=== PATIENT | male | born 1955 | race Hispanic/Latino ===

== ENCOUNTER 2024-04-19 19:23 | Emergency (ER) | payer OTHER ==
[~2024-04-19] VITALS: Ht 172.7 cm; Wt 93.0 kg
[~2024-04-19 19:23] MED LIST: ASPI-1197 PO; ATOR40TA69 PO
[2024-04-19 19:31] LABS: GLUCOSE POC COMMENT Notified Nurse
[2024-04-19 19:49] LABS: APPEARANCE,URINE CLEAR (CLEAR); BILIRUBIN,URINE NEGATIVE (NEGATIVE); COLOR,URINE COLORLESS (YELLOW); GLUCOSE, URINE (UA) NEGATIVE (NEGATIVE); KETONES,URINE NEGATIVE (NEGATIVE); LEUKOCYTE ESTERASE ,URINE NEGATIVE Leu/uL (NEGATIVE); NITRATE,URINE NEGATIVE (NEGATIVE); OCCULT BLOOD,URINE NEGATIVE (NEGATIVE); PROTEIN,URINE NEGATIVE (NEGATIVE); UROBILINOGEN,URINE 0.2 mg/dL (0.2-1.0)
[2024-04-19 19:57] LABS: ADD UA MICROSCOPIC NO
[2024-04-19 20:01] VITALS: TEMP 97.5
[2024-04-19 20:04] LABS: BASOPHILS # (AUTO) 0.04 K/uL (0.00-0.20); BASOPHILS % (AUTO) 0.4 % (0.0-5.0); EOSINOPHILS # (AUTO) 0.25 K/uL (0.00-0.70); EOSINOPHILS % (AUTO) 2.4 % (0.0-8.0); HEMATOCRIT 41.5 % (42-54); IMMATURE GRANULOCYTE ABSOLUTE 0.03 K/uL (0-1); LYMPHOCYTES # (AUTO) 3.3 K/uL (1.0-4.8); LYMPHOCYTES % (AUTO) 31.2 % (21.0-51.0); MEAN CORPUSCULAR HEMOGLOBIN 30.9 pg (27.0-33.0); MEAN CORPUSCULAR HGB CONC 33.7 g/dL (32.0-36.0); MEAN CORPUSCULAR VOLUME 91.6 fL (79-99); MONOCYTES # (AUTO) 0.6 K/uL (0.1-1.0); MONOCYTES % (AUTO) 5.5 % (3.0-13.0); NEUTROPHILS # (AUTO) 6.4 K/uL (1.8-7.7); NEUTROPHILS % (AUTO) 60.2 % (40.0-77.0); PLATELET COUNT (AUTO) 191 K/uL (130-400); RED BLOOD CELL COUNT(AUTO) 4.53 MIL/uL (4.50-6.20); RED CELL DISTRIBUTION WIDTH 12.9 % (11.0-15.5); WHITE BLOOD COUNT (AUTO) 10.6 K/uL (4.8-10.8)
[2024-04-19 20:30] LABS: CREATININE 0.9 mg/dL (0.5-1.3)
[2024-04-19 21:21] VITALS: BP 153/94; PULSE 68; RESP 19; O2SAT 99
== END 2024-04-19 21:22 | disposition home or self-care (01) ==
LOC: EDH 19:23
DX: E11.649 Type 2 diabetes mellitus with hypoglycemia without coma (principal); E78.00 Pure hypercholesterolemia, unspecified; I10 Essential (primary) hypertension; Z79.82 Long term (current) use of aspirin; Z79.899 Other long term (current) drug therapy; Z86.73 Personal history of transient ischemic attack (TIA), and cerebral infarction without residual deficits
CPT/HCPCS: 36415; 80048; 81003; 82948; 85025; 93005

== ENCOUNTER 2024-11-26 12:13 | Observation (INO) | payer OTHER ==
[~2024-11-26] VITALS: Ht 172.7 cm; Wt 94.6 kg
--- NOTE | 2024-11-26 14:06 | HMCIMG ---
Exam Type: CT HEAD/BRAIN W/O CONTRAST Clinical Information: Fall, head injury Comparison: None CT Dose Index (CTDI): 57.33 mGy Dose Length Product (DLP): 956.79 total mGy-cm Findings: The examination shows atrophy. There is low attenuation throughout the periventricular white matter locations, consistent with chronic small vessel ischemic changes. In addition, there is is evidence of an old infarct manifesting as encephalomalacia of the right cerebellar hemisphere. No acute intra- or extra-axial fluid collections are seen. There is no evidence of acute or chronic hemorrhage. There is no mass effect or shift of midline structures. The skull windows show no significant acute abnormalities. Postcraniotomy changes left parietal bone seen. IMPRESSION: 1. ATROPHY AND CHRONIC ISCHEMIC CHANGES. This study was performed using dose reduction techniques to include automated exposure control and/or adjustment of the mA and/or kV according to patient size.
[2024-11-26] MEDS: morPHINE 4 MG SYG IM ONE (14:11)
--- NOTE | 2024-11-26 15:15 | HMCIMG ---
Exam Type: HIP UNILAT 2-3VW RIGHT Clinical Information: pain Comparison: None Findings: The bone examination is unremarkable. No fractures or dislocations are seen. No radiopaque foreign bodies are noted. Soft tissues are preserved. IMPRESSION: Normal examination.
--- NOTE | 2024-11-26 15:15 | HMCIMG ---
Exam Type: RIBS BILAT INC PA CHEST 4+VWS Clinical Information: pain Comparison: None Findings: Routine views reveal no evidence of fracture, dislocation, destructive process, or other rib abnormalities. No soft tissue abnormality is noted either. There is no evidence of pneumothorax. IMPRESSION: NORMAL RIB SERIES.
--- NOTE | 2024-11-26 15:16 | HMCIMG ---
Exam Type: FOREARM 2VWS RT Clinical Information: pain Comparison: None Findings: The bone examination is unremarkable. No fractures or dislocations are seen. No radiopaque foreign bodies are noted. Soft tissues are preserved. IMPRESSION: Normal examination.
--- NOTE | 2024-11-26 15:16 | HMCIMG ---
Exam Type: SHOULDER COMP 2+VWS RT Clinical Information: pain Comparison: None FINDINGS: The acromioclavicular joint shows hypertrophy, which may impinge upon the rotator cuff tendon. The glenohumeral joint is preserved. Visualized portions of the humerus, the scapula, and the clavicle as well as the upper ribcage are unremarkable. No pulmonary pathology is noted in the visualized portions of the upper lobe. The soft tissues are preserved. There are no other gross abnormalities. IMPRESSION: Degenerative changes of the acromioclavicular joint with hypertrophy.
[2024-11-26 16:22] LABS: BASOPHILS # (AUTO) 0.05 K/uL (0.00-0.20); BASOPHILS % (AUTO) 0.5 % (0.0-5.0); EOSINOPHILS # (AUTO) 0.22 K/uL (0.00-0.70); EOSINOPHILS % (AUTO) 2.1 % (0.0-8.0); HEMATOCRIT 43.9 % (42-54); IMMATURE GRANULOCYTE ABSOLUTE 0.04 K/uL (0-1); LYMPHOCYTES # (AUTO) 2.9 K/uL (1.0-4.8); LYMPHOCYTES % (AUTO) 28.7 % (21.0-51.0); MEAN CORPUSCULAR HEMOGLOBIN 29.8 pg (27.0-33.0); MEAN CORPUSCULAR HGB CONC 33.3 g/dL (32.0-36.0); MEAN CORPUSCULAR VOLUME 89.6 fL (79-99); MONOCYTES # (AUTO) 0.6 K/uL (0.1-1.0); MONOCYTES % (AUTO) 6.3 % (3.0-13.0); NEUTROPHILS # (AUTO) 6.4 K/uL (1.8-7.7); PLATELET COUNT (AUTO) 228 K/uL (130-400); RED CELL DISTRIBUTION WIDTH 13.3 % (11.0-15.5); WHITE BLOOD COUNT (AUTO) 10.2 K/uL (4.8-10.8)
[2024-11-26 16:30] LABS: CREATININE 0.8 mg/dL (0.5-1.3); POTASSIUM 3.8 mmol/L (3.5-5.1)
[2024-11-26] MEDS ORDERED: morPHINE 2 MG SYG IVP PRN (17:00)
[2024-11-26] MEDS ORDERED: hydrALAZine 20MG/ML VIAL IV PRN (17:00)
[2024-11-26] MEDS ORDERED: acetaMINOPHEN 500 MG TABLET PO PRN (17:00)
[2024-11-26] MEDS ORDERED: ketOROlac 15MG/ML VIAL (15MG/ML) IV PRN (17:00)
--- NOTE | 2024-11-26 17:07 | HP ---
[facility] Date of Service: November 26, 2024 Time of Service: 17:07 HISTORY OF PRESENT ILLNESS: 69-year-old male with past medical history of hypertension, hyperlipidemia, history of stroke with right-sided weakness who presented to the hospital secondary to fall. The patient states around two days ago while he was ambulating he fell down outside his home. He states he fell on his right side on rocks. He noted swelling in the right upper extremity and was having pain on the right side of the chest. Patient was having pain with deep inspiration on the right side of the chest. He does have chronic weakness on the right upper extremity and lower extremity. He states he has been using a cane for ambulation. He lives with his son who helps him with his daily activities. Denies any fever, chills, new onset weakness, headaches, neck pain, syncopal episode. Patient denied losing consciousness during the fall. Denied any abdominal pain, nausea, vomiting. He states he did not take his medications for hypertension today. Additionally he states he has been eating well at home. He denies any choking episodes. Labs in the ED were notable for white count of 10.2, hemoglobin was 14.6, platelet count was 228 k, sodium was 143, potassium was 3.8, creatinine was 0.8, blood glucose was 161 Patient underwent a forearm x-ray which was negative, patient underwent a head CT which did not show any acute changes. Patient has a old infarct in the right cerebellar area. Hip x-ray was negative patient underwent a rib x-ray which was also negative. Patient underwent a right shoulder x-ray which was notable for degeneration of changes of the acromioclavicular joint with hypertrophic. No acute fracture was noted REVIEW OF SYSTEMS CONSTITUTIONAL: Denies fevers, chills, or night sweats. No unintentional weight loss reported. NEUROLOGICAL: Denies headache, amaurosis fugax, motor weakness, sensory deficit, vertigo/spinning sensation, gait abnormalities, or tremors. ENT: No hearing loss, otalgia, otorrhea, rhinitis, rhinorrhea, hoarseness, or sore throat. CARDIOVASCULAR: Denies any exertional angina, dyspnea on exertion, orthopnea, paroxysmal nocturnal dyspnea, palpitations, life-threatening arrhythmias, claudication. PULMONARY: Denies any shortness of breath, cough, phlegm/sputum, hemoptysis, pleuritic chest pain. GASTROINTESTINAL: Denies any type of dysphagia to either liquids or solids. Denies nausea, vomiting, pyrosis, early satiety, abdominal pain, diarrhea, constipation, or changes in stool consistency or caliber. Denies coffee-ground emesis, hematemesis, hematochezia, or melanotic stools. GENITOURINARY: Denies frequency, urgency, nocturia, hematuria or incontinence (Storage/Irritative symptoms.) Low urinary stream, straining to void, urinary intermittency or hesitancy, splitting of the voiding stream, terminal dribbling. ENDOCRINOLOGIC: Denies polyuria, polydipsia, polyphagia or heat/cold intolerances. HEMATOLOGIC: Denies thrombophilia/previous clots, or coagulopathy/bleeding disorders. ONCOLOGIC: Denies personal history of malignancy. DERMATOLOGIC: Denies rashes or pruritus. PSYCHIATRIC: Denies any suicidal or homicidal ideation. Denies hallucinations. Musculoskeletal: Positive for pain in the right upper extremity PAST MEDICAL HISTORY: Hypertension, hyperlipidemia, history of stroke x3 right-sided weakness PAST SURGICAL HISTORY: History of intracranial surgery for hematoma PAST SOCIAL HISTORY: Denied any smoking, alcohol, drug use FAMILY HISTORY: [ ] Coded Allergies: No Known Drug Allergies (Unverified Allergy, Unknown, 09/11/23) PHYSICAL EXAM GENERAL APPEARANCE: The patient is awake, alert, and oriented, in no acute c ardiopulmonary distress. NEUROLOGICAL: Cranial nerves II-XII grossly intact. Motor is 5/5 in left upper extremity. Muscle strength is 4/5 in the right upper extremity. Muscle strength is 5/5 in the lower extremities bilaterally. No sensory deficits. HEENT: Face is symmetric. Pupils are equal and reactive. Extraocular movements are intact. NECK: Supple. No JVD. No thyromegaly. No submental, submandibular, pre- /postauricular, occipital or supraclavicular lymphadenopathy. CHEST: Normal chest expansion. No Telemetry. LUNGS: Absence of any rales, rhonchi or any wheezing. CARDIOVASCULAR: Regular. S1 and S2 normal. No appreciable rubs, murmurs or gallops. ABDOMEN: Soft, nontender, and nondistended. There is no rebound, voluntary gu arding, or rigidity. : Deferred. No Osorio. EXTREMITIES: Has swelling noted in the right toe forearm below the right wrist area. SKIN: No skin breakdown. Vital Sign (Last 24 Hours) 11/26/24 12:30 Temp 98.1 Pulse 68 Resp 17 B/P (MAP) 156/95 Pulse Ox 99 O2 Delivery Room Air* O2 Flow Rate 0 FiO2 21 LABS: Laboratory: Test 11/26/24 16:13 Range/Units White Blood Count 10.2 4.8-10.8 K/uL Red Blood Count 4.90 4.50-6.20 MIL/uL Hemoglobin 14.6 14.0-18.0 g/dL Hematocrit 43.9 42-54 % Mean Corpuscular Volume 89.6 79-99 fL Mean Corpuscular Hemoglobin 29.8 27.0-33.0 pg Mean Corpuscular Hemoglobin Concent 33.3 32.0-36.0 g/dL Red Cell Distribution Width 13.3 11.0-15.5 % Platelet Count 228 130-400 K/uL Mean Platelet Volume 10.4 7.5-10.5 fL Immature Granulocyte % (Auto) 0.4 0-1 % Neutrophils (%) (Auto) 62.0 40.0-77.0 % Lymphocytes (%) (Auto) 28.7 21.0-51.0 % Monocytes (%) (Auto) 6.3 3.0-13.0 % Eosinophils (%) (Auto) 2.1 0.0-8.0 % Basophils (%) (Auto) 0.5 0.0-5.0 % Neutrophils # (Auto) 6.4 1.8-7.7 K/uL Lymphocytes # (Auto) 2.9 1.0-4.8 K/uL Monocytes # (Auto) 0.6 0.1-1.0 K/uL Eosinophils # (Auto) 0.22 0.00-0.70 K/uL Basophils # (Auto) 0.05 0.00-0.20 K/uL Absolute Immature Granulocyte (auto 0.04 0-1 K/uL Nucleated Red Blood Cells 0.0 0.0-0.19 % Sodium Level 143 136-145 mmol/L Potassium Level 3.8 3.5-5.1 mmol/L Chloride Level 106 101-111 mmol/L Carbon Dioxide Level 27 21-32 mmol/L Blood Urea Nitrogen 12 7-18 mg/dL Creatinine 0.8 0.5-1.3 mg/dL Glomerular Filtration Rate Calc 96 >90 mL/min Random Glucose 161 H 70-105 mg/dL Total Calcium 8.5 8.5-10.1 mg/dL Troponin I High Sensitivity 6 4-75 ng/L Current Medications Medications (Trade) Dose Ordered Sig/Zully Route PRN Reason Start Time Stop Time Status Last Admin Dose Admin Acetaminophen (TYLenol 500MG TAB) 500 mg Q6H PRN PO MILD PAIN (1-3) 11/26/24 17:00 12/26/24 16:59 Hydralazine HCl (APRESOLine 20MG INJ) 10 mg Q6H PRN IV ADMINISTER FOR SBP > 180 11/26/24 17:00 12/26/24 16:59 Ketorolac Tromethamine (toRADol) 15 mg Q6H PRN IV MODERATE PAIN (4-6) 11/26/24 17:00 12/01/24 16:59 Morphine Sulfate (morPHINE 2MG SYG) 2 mg Q4H PRN IVP SEVERE PAIN (7-10) 11/26/24 17:00 12/03/24 16:59 Sodium Chloride 1,000 ml @ 100 mls/hr Q10H IV 11/26/24 17:00 12/26/24 16:59 DIAGNOSTICS / RADIOLOGY: [ ] ASSESSMENT: Mechanical fall POA Right upper extremity swelling secondary to fall with negative imaging. Right-sided chest pain secondary to fall Debility History of CVA x3 with right-sided deficit Hypertension with noncompliance to medication Hyperlipidemia Diabetes mellitus type 2 PLAN: - patient to be admitted to medical-surgical unit with telemetry -in reference to mechanical fall. Patient will be monitored on telemetry. We will also request a CT chest to rule out rib fracture. The patient will be started on NS for gentle hydration. Patient's imaging was negative for any fractures. We will request PT evaluation -obtain home medications she will be reconciled once available -check TSH, A1c -patient will be on fall and aspiration precautions. We will monitor closely for any issues with swallowing. -obtain case management consultation -further orders per hospitalization course Advanced Care Planning Which of the following were discussed: Hospice care: Yes __ No _x_ Therapeutic options: Yes __ No __ Advance directives: Yes __ No __ Other discussions: Discussed with who?: patient (Patient, family or surrogates) Voluntary nature of this service was explained to the patient? Yes _x_ No __ Amount of time spent: 25 minutes LIBBY Prieto MD, MD November 26, 2024 17:07
[2024-11-26 17:16] LABS: HEMOGLOBIN A1C 7.1 % (4.0-6.0)
[2024-11-26 17:27] LABS: THYROID STIMULATING HORMONE 4.76 uIU/mL (0.36-3.74)
--- NOTE | 2024-11-26 18:08 | EKG ---
[facility] Test Date: 2024-11-26 Test Time: 18:05:34 Pat Name: ROLAN AGUILAR Department: [facility] Room: 315 Gender: M Timers Inspector: [id number] : [id number] Requested By: TITUS FISEHR Order Number: [id number] Reading MD: Fabrizio Holt Measurements Intervals [place] Rate: 62 P: -1 MN: 134 QRS: 50 QRSD: 93 T: 79 QT: 424 QTc: 432 Interpretive Statements Sinus rhythm Compared to ECG 04/19/2024 20:47:11 No significant changes Electronically Signed On 11-27-2024 22:27:37 CDT by Fabrizio Holt Please click the below link to view image of tracing.
--- NOTE | 2024-11-26 18:33 | HMCIMG ---
CT CHEST WITHOUT CONTRAST INDICATION: Right-sided rib pain after fall TECHNIQUE: Routine axial images using 5 mm slice thickness were acquired from the lung apices to the bases without the administration of IV contrast.Coronal and sagittal reformatted images acquired for interpretation. CT was performed with one or more of the following dose reduction techniques: Automated exposure control, adjustment of the mA and/or kV according to patient size, or use of iterative reconstruction technique. COMPARISON: None FINDINGS: The heart size is normal. Coronary arterial wall calcific plaque noted. No pericardial effusion noted. The visualized great vessels and thoracic aorta are within normal limits. The trachea and airways are patent. No evidence for pulmonary nodule, consolidation, cavitary lesion, or other abnormal pulmonary parenchymal opacity. 4 mm micronodular confluence of vessels within the posterior left upper lobe. Nonetheless, no further follow-up will be necessary based on 2017 Fleischner Society recommendations. No axillary, hilar, or mediastinal lymphadenopathy. No pleural effusion or pneumothorax identified. Limited views of the upper abdomen appear normal. Mild thoracic spondylosis. IMPRESSION: No evidence for rib fracture. Arteriosclerotic disease as described.
[2024-11-26 18:55] VITALS: BP 188/133; PULSE 62; RESP 20; TEMP 98
[2024-11-26 19:00] VITALS: O2SAT 97
[2024-11-26] MEDS: amLODIPine 5 MG TAB PO SCH (19:57)
[2024-11-26] MEDS: INSULIN humuLIN R 100 UNIT/ML 3ML SQ SCH (20:40)
[2024-11-26 21:00] VITALS: BP 167/99
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
[2024-11-26 23:14] LABS: ADD UA MICROSCOPIC YES; APPEARANCE,URINE CLEAR (CLEAR); BILIRUBIN,URINE NEGATIVE (NEGATIVE); COLOR,URINE LIGHT-YELLOW (YELLOW); GLUCOSE, URINE (UA) 50 mg/dL (NEGATIVE); KETONES,URINE NEGATIVE (NEGATIVE); LEUKOCYTE ESTERASE ,URINE NEGATIVE Leu/uL (NEGATIVE); NITRATE,URINE NEGATIVE (NEGATIVE); OCCULT BLOOD,URINE NEGATIVE (NEGATIVE); PH,URINE 6.5 (5.0-8.0); PROTEIN,URINE NEGATIVE (NEGATIVE); UROBILINOGEN,URINE 0.2 mg/dL (0.2-1.0)
[2024-11-26 23:16] LABS: MUCUS,URINE RARE LPF (None Seen); RBC,URINE 0-1 /HPF (0-1)
[2024-11-26] MEDS: 0.9%NACL 1000ML 1,000 ML IV SCH (23:40)
[2024-11-27] VITALS (7 sets, daily range): BP systolic 140–168; BP diastolic 85–103; PULSE 63–79; RESP 18; TEMP 97.7–98.5; O2SAT 96
[2024-11-27] MEDS ORDERED: CYCL5TAB3 PO (01:56)
[2024-11-27] MEDS ORDERED: GABA-529 PO (02:03)
[2024-11-27] MEDS ORDERED: AMLO-257 PO (02:03)
[2024-11-27] MEDS ORDERED: METF-446 PO (02:04)
[2024-11-27] MEDS ORDERED: TAMS-55 PO (02:04)
[2024-11-27 06:09] LABS: BASOPHILS # (AUTO) 0.06 K/uL (0.00-0.20); BASOPHILS % (AUTO) 0.6 % (0.0-5.0); EOSINOPHILS # (AUTO) 0.33 K/uL (0.00-0.70); EOSINOPHILS % (AUTO) 3.1 % (0.0-8.0); HEMATOCRIT 38.2 % (42-54); IMMATURE GRANULOCYTE ABSOLUTE 0.05 K/uL (0-1); LYMPHOCYTES # (AUTO) 3.5 K/uL (1.0-4.8); LYMPHOCYTES % (AUTO) 32.5 % (21.0-51.0); MEAN CORPUSCULAR HEMOGLOBIN 29.9 pg (27.0-33.0); MEAN CORPUSCULAR HGB CONC 33.5 g/dL (32.0-36.0); MEAN CORPUSCULAR VOLUME 89.3 fL (79-99); MONOCYTES # (AUTO) 0.6 K/uL (0.1-1.0); MONOCYTES % (AUTO) 5.6 % (3.0-13.0); NEUTROPHILS # (AUTO) 6.2 K/uL (1.8-7.7); NEUTROPHILS % (AUTO) 57.7 % (40.0-77.0); PLATELET COUNT (AUTO) 187 K/uL (130-400); RED BLOOD CELL COUNT(AUTO) 4.28 MIL/uL (4.50-6.20); RED CELL DISTRIBUTION WIDTH 13.3 % (11.0-15.5); WHITE BLOOD COUNT (AUTO) 10.7 K/uL (4.8-10.8)
[2024-11-27 06:23] LABS: CREATININE 0.7 mg/dL (0.5-1.3)
[2024-11-27 06:30] LABS: POTASSIUM 2.9 mmol/L (3.5-5.1)
--- NOTE | 2024-11-27 06:48 | NUR ---
REPORTED POTASSIUM OF 2.9 TO MARGOT JIMENEZ, OBTAINED ORDER FOR RECOLLECT IN OPPOSITE ARM OF IV FLUIDS.
[2024-11-27 07:33] LABS: CREATININE 0.8 mg/dL (0.5-1.3); POTASSIUM 3.4 mmol/L (3.5-5.1)
[2024-11-27] MEDS ORDERED: GABApentin 100 MG CAPSULE PO PRN (08:00)
[2024-11-27] MEDS: tamSULOsin HCL 0.4 MG CAP.ER.24H PO SCH (09:56)
[2024-11-27] MEDS: amLODIPine 5 MG TAB PO SCH (09:56)
--- NOTE | 2024-11-27 10:08 | PN ---
[facility] PROGRESS NOTE Date of Service: November 27, 2024 Time of Service: 10:04 SUBJECTIVE: [The patient is a 69-year-old male who presented to the emergency department following a fall. A CT scan of the chest did not reveal any rib fractures but did indicate the presence of atherosclerotic disease. An X-ray of the right shoulder showed degenerative changes of the acromioclavicular joint with hypertrophic changes, but no acute fractures were noted. Laboratory tests revealed hyperglycemia, with blood sugar levels ranging from 122 to 142 mg/dL, and a potassium level of 3.4 mmol/L. The TSH level 4.76. The plan includes a request for physical therapy evaluation and treatment, along with continued management of the patient's pain. ] REVIEW OF SYSTEMS CONSTITUTIONAL: Denies fevers, chills, or night sweats. No unintentional weight loss reported. NEUROLOGICAL: Denies headache, amaurosis fugax, motor weakness, sensory deficit, vertigo/spinning sensation, gait abnormalities, or tremors. ENT: No hearing loss, otalgia, otorrhea, rhinitis, rhinorrhea, hoarseness, or sore throat. CARDIOVASCULAR: Denies any exertional angina, dyspnea on exertion, orthopnea, paroxysmal nocturnal dyspnea, palpitations, life-threatening arrhythmias, claudication. PULMONARY: Denies any shortness of breath, cough, phlegm/sputum, hemoptysis, pleuritic chest pain. GASTROINTESTINAL: Denies any type of dysphagia to either liquids or solids. Denies nausea, vomiting, pyrosis, early satiety, abdominal pain, diarrhea, constipation, or changes in stool consistency or caliber. Denies coffee-ground emesis, hematemesis, hematochezia, or melanotic stools. GENITOURINARY: Denies frequency, urgency, nocturia, hematuria or incontinence (Storage/Irritative symptoms.) Low urinary stream, straining to void, urinary intermittency or hesitancy, splitting of the voiding stream, terminal dribbling. ENDOCRINOLOGIC: Denies polyuria, polydipsia, polyphagia or heat/cold intoleran yeni. HEMATOLOGIC: Denies thrombophilia/previous clots, or coagulopathy/bleeding disorders. ONCOLOGIC: Denies personal history of malignancy. DERMATOLOGIC: Denies rashes or pruritus. PSYCHIATRIC: Denies any suicidal or homicidal ideation. Denies hallucinations. Musculoskeletal: Positive for pain in the right upper extremity PHYSICAL EXAM GENERAL APPEARANCE: The patient is awake, alert, and oriented, in no acute cardiopulmonary distress. NEUROLOGICAL: Cranial nerves II-XII grossly intact. Motor is 5/5 in left upper extremity. Muscle strength is 4/5 in the right upper extremity. Muscle strength is 5/5 in the lower extremities bilaterally. No sensory deficits. HEENT: Face is symmetric. Pupils are equal and reactive. Extraocular movements are intact. NECK: Supple. No JVD. No thyromegaly. No submental, submandibular, pre- /postauricular, occipital or supraclavicular lymphadenopathy. CHEST: Normal chest expansion. No Telemetry. LUNGS: Absence of any rales, rhonchi or any wheezing. CARDIOVASCULAR: Regular. S1 and S2 normal. No appreciable rubs, murmurs or gallops. ABDOMEN: Soft, nontender, and nondistended. There is no rebound, voluntary guarding, or rigidity. : Deferred. No Osorio. EXTREMITIES: Has swelling noted in the right toe forearm below the right wrist area. SKIN: No skin breakdown. Vital Signs (last 8hr) Date Time Temp Pulse Resp B/P (MAP) Pulse Ox O2 Delivery O2 Flow Rate FiO2 11/27/24 07:46 97.9 66 18 149/91 94 Room Air 11/27/24 03:28 97.7 70 18 141/89 94 Room Air LABS: Laboratory: Test 11/27/24 07:18 11/27/24 06:02 11/27/24 05:19 11/26/24 23:00 Range/Units Sodium Level 138 136-145 mmol/L Potassium Level 3.4 L 3.5-5.1 mmol/L Chloride Level 103 101-111 mmol/L Carbon Dioxide Level 26 21-32 mmol/L Blood Urea Nitrogen 13 7-18 mg/dL Creatinine 0.8 0.5-1.3 mg/dL Glomerular Filtration Rate Calc 96 >90 mL/min Random Glucose 142 H 70-105 mg/dL Total Calcium 8.8 8.5-10.1 mg/dL White Blood Count 10.7 4.8-10.8 K/uL Red Blood Count 4.28 L 4.50-6.20 MIL/uL Hemoglobin 12.8 L 14.0-18.0 g/dL Hematocrit 38.2 L 42-54 % Mean Corpuscular Volume 89.3 79-99 fL Mean Corpuscular Hemoglobin 29.9 27.0-33.0 pg Mean Corpuscular Hemoglobin Concent 33.5 32.0-36.0 g/dL Red Cell Distribution Width 13.3 11.0-15.5 % Platelet Count 187 130-400 K/uL Mean Platelet Volume 10.4 7.5-10.5 fL Immature Granulocyte % (Auto) 0.5 0-1 % Neutrophils (%) (Auto) 57.7 40.0-77.0 % Lymphocytes (%) (Auto) 32.5 21.0-51.0 % Monocytes (%) (Auto) 5.6 3.0-13.0 % Eosinophils (%) (Auto) 3.1 0.0-8.0 % Basophils (%) (Auto) 0.6 0.0-5.0 % Neutrophils # (Auto) 6.2 1.8-7.7 K/uL Lymphocytes # (Auto) 3.5 1.0-4.8 K/uL Monocytes # (Auto) 0.6 0.1-1.0 K/uL Eosinophils # (Auto) 0.33 0.00-0.70 K/uL Basophils # (Auto) 0.06 0.00-0.20 K/uL Absolute Immature Granulocyte (auto 0.05 0-1 K/uL Nucleated Red Blood Cells 0.0 0.0-0.19 % Whole Blood Glucose 142 H 70-110 MG/DL Urine Color LIGHT-YELLOW YELLOW Urine Appearance CLEAR CLEAR Urine pH 6.5 5.0-8.0 Urine Specific Garwin 1.018 1.001-1.031 Urine Protein NEGATIVE NEGATIVE mg/dL Urine Glucose (UA) 50 H NEGATIVE mg/dL Urine Ketones NEGATIVE NEGATIVE mg/dL Urine Occult Blood NEGATIVE NEGATIVE Urine Nitrate NEGATIVE NEGATIVE Urine Bilirubin NEGATIVE NEGATIVE mg/dL Urine Urobilinogen 0.2 0.2-1.0 mg/dL Urine Leukocyte Esterase NEGATIVE NEGATIVE Wolfgang/uL Urine RBC 0-1 0-1 /HPF Urine WBC 2-5 H 0-1 /HPF Urine Amorphous Crystals (Auto) RARE None Seen /LPF Urine Bacteria None None Seen /HPF Test 11/26/24 16:13 Range/Units Hemoglobin A1c 7.1 H 4.0-6.0 % Estimated Average Glucose (eAG) 157 H 70-126 mg/dL Troponin I High Sensitivity 6 4-75 ng/L C-Reactive Protein, Quantitative 19.50 H 0.5-3.0 mg/L Procalcitonin < 0.05 L 0.05-0.5 ng/mL Thyroid Stimulating Hormone (TSH) 4.76 H 0.36-3.74 uIU/mL Current Medications Medications (Trade) Dose Ordered Sig/Zully Route PRN Reason Start Time Stop Time Status Last Admin Dose Admin Acetaminophen (TYLenol 500MG TAB) 500 mg Q6H PRN PO MILD PAIN (1-3) 11/26/24 17:00 12/26/24 16:59 Amlodipine Besylate (NorvASC 5MG TAB) 5 mg DAILY PO 11/27/24 09:00 12/27/24 08:59 11/27/24 09:56 5 MG Amlodipine Besylate (NorvASC 5MG TAB) 5 mg ONCE PO 11/26/24 17:30 11/26/24 21:30 DC 11/26/24 19:57 5 MG Atorvastatin Calcium (LIPItor 40MG) 40 mg HS PO 11/27/24 21:00 12/27/24 20:59 Gabapentin (NEURontin 100 mg CAP) 100 mg BID PRN PO PAIN 11/27/24 08:00 12/27/24 07:59 Hydralazine HCl (APRESOLine 20MG INJ) 10 mg Q6H PRN IV ADMINISTER FOR SBP > 180 11/26/24 17:00 12/26/24 16:59 Insulin Human Regular (humuLIN R 100 UNIT/ML 3ML) INSULIN SLIDING SCAL... ACHS SQ 11/26/24 21:00 12/26/24 20:59 Ketorolac Tromethamine (toRADol) 15 mg Q6H PRN IV MODERATE PAIN (4-6) 11/26/24 17:00 12/01/24 16:59 Morphine Sulfate (morPHINE 2MG SYG) 2 mg Q4H PRN IVP SEVERE PAIN (7-10) 11/26/24 17:00 12/03/24 16:59 Sodium Chloride 1,000 ml @ 100 mls/hr Q10H IV 11/26/24 17:00 12/26/24 16:59 11/27/24 03:38 100 MLS/HR Tamsulosin HCl (FloMAX) 0.4 mg DAILY PO 11/27/24 09:00 12/27/24 08:59 11/27/24 09:56 0.4 MG DIAGNOSTICS / RADIOLOGY: [ ] ASSESSMENT: Mechanical fall POA Right upper extremity swelling secondary to fall with negative imaging. Right-sided chest pain secondary to fall Debility History of CVA x3 with right-sided deficit Hypertension with noncompliance to medication Hyperlipidemia Diabetes mellitus type 2 PLAN: Continue medical surgical admission with telemetry In reference to mechanical fall, patient will have physical therapy to eval and treat , continue with pain management Continue with gentle fluid IV hydration We will reconciled all home medications Continue with GI and DVT prophylaxis We will repeat labs tomorrow Continue with fall precaution Case management/school social worker has been consulted due to living condition Patient may benefit for care home facility Case discussed with Dr. Martinez, above plan was formulated ATTESTATION BY PHYSICIAN I have seen and examined the patient. I reviewed the documentation, medical decision making, and treatment plan as noted by the mid-level provider above. I agree with the findings and plan of care. CLINT MARTINEZ MD, [facility] November 27, 2024 10:08
[2024-11-27 10:44] LABS: HEMOGLOBIN A1C 7.2 % (4.0-6.0)
--- NOTE | 2024-11-27 10:48 | NUR ---
DCP: HOME Pt currently lives with Brandy Paige [phone], son Justin Paige Jr [phone], and dgt in law Maria Elena Martinez [phone]. Pt denied any insecurities with food, mcc, and/or utilities. Pt states that he uses a cane to ambulate. Pt reports being able to complete ADLs. PCP is Odette Perry. At DC pt will want to go home and family can assist with transportation. Addendum: 11/27/24 at 1051 by BETH BLAKE SS Amended: Links added.
--- NOTE | 2024-11-27 10:51 | NUR ---
SW CONSULT HOME SITUATION SW met with pt and MACY Wayise Lesia [phone] at bedside. At this time the pt lives with , son, and DIL. DIL states that she is typically the one that is with the pt while he is at home. She states that she will be now helping him with all his appointments and meds since she feels that he will need some help with that. Pt also stated that family is interested in a MPOA and son Justin Paige Jr will be the one requesting it. Pt was agreeable to this. SW encouarged family to notify nurse whenever son arrives and we can assist with that request.
[2024-11-27] MEDS: PoTASSium chloRIDE 20MEQ ER 20 MEQ ERTAB PO ONE (13:14)
--- NOTE | 2024-11-27 14:15 | NUR ---
[facility] Consult: Patient assessed by wound healing team. See wound assessment. Assessment and recommendations provided to primary nurse. Education provided. Addendum: 11/28/24 at 1322 by SMITH BORJAS RN RN/ Amended: Links added.
--- NOTE | 2024-11-27 16:11 | NUR ---
SOCIAL SERVICE CONSULT SW met with family and pt was agreeable to MPOA and granted it to his son Justin Paige Jr [phone]. Family was provided original and copy was placed in pt chart.
--- NOTE | 2024-11-27 18:01 | NUR ---
ON ROUNDS HAD INFORMED PRIMARY TEAM ON POTASSIUM AND PER DAUGHTER STATING PATIENT HAS HAD TROUBLE SWALLOWING AT TIMES .
[2024-11-27] MEDS: atorVAStatin 40 MG TABLET PO SCH (21:19)
[2024-11-28 00:08] VITALS: BP 131/72; PULSE 77; RESP 17; TEMP 98.1
[2024-11-28 04:00] VITALS: BP 132/89; PULSE 84; RESP 18; TEMP 98.5
[2024-11-28 05:38] LABS: HEMATOCRIT 42.6 % (42-54); MEAN CORPUSCULAR HEMOGLOBIN 29.9 pg (27.0-33.0); MEAN CORPUSCULAR HGB CONC 33.6 g/dL (32.0-36.0); MEAN CORPUSCULAR VOLUME 88.9 fL (79-99); RED BLOOD CELL COUNT(AUTO) 4.79 MIL/uL (4.50-6.20); RED CELL DISTRIBUTION WIDTH 13.2 % (11.0-15.5); WHITE BLOOD COUNT (AUTO) 10.2 K/uL (4.8-10.8)
[2024-11-28 05:51] LABS: CREATININE 0.9 mg/dL (0.5-1.3)
[2024-11-28 08:04] VITALS: BP 145/85; PULSE 70; RESP 18; TEMP 98.1
[2024-11-28 11:55] VITALS: BP 157/114; PULSE 76; RESP 18; TEMP 98.1
--- NOTE | 2024-11-28 13:00 | NUR ---
BEDSIDE SWALLOW EVAL COMPLETED. No s/s of aspiration. Recommend minced and moist solids, thin liquids and pills whole 1 per swallow or crushed with pureed as tolerated. Compensatory strategies: 1. sit upright during oral intake 2. small bites/sips 3. slow oral intake HOUSEKEEPING COORDINATOR reviewed results and recommendations with patient and nurse Leandra. HOUSEKEEPING COORDINATOR educated patient on risks and consequences of aspiration. Speech therapy not warranted at this time. All questions answered. Addendum: 11/28/[address] TOMA CAIN Amended: Links added.
[2024-11-28 14:00] VITALS: BP 134/94; PULSE 94
--- NOTE | 2024-11-28 15:21 | DS ---
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 He reported pain with deep inspiration on the right side of the chest. There was no loss of consciousness, new weakness, or other concerning symptoms reported. Laboratory tests in the emergency department showed a white blood cell count of 10.2, hemoglobin of 14.6, platelet count of 228, sodium of 143, potassium of 3.8, creatinine of 0.8, and blood glucose of 161. Imaging studies, including a forearm X-ray, hip X-ray, and rib X-ray, were negative for fractures. A head CT showed no acute changes but did reveal an old infarct in the right cerebellar area. A right shoulder X-ray showed degenerative changes in the acromioclavicular joint. A chest CT did not show any rib fractures but indicated atherosclerotic disease. While hospitalized, patient was also noted coughing well drinking water or eating. A speech therapist evaluated the patient for swallowing/dysphagia and they recommended moist diet. This has been brought up to the patient and family's attention to continue at home. Treatment and Management: Pain Management: Continued management of pain with appropriate analgesics. Physical Therapy: A request for a physical therapy evaluation and treatment was made to assist with mobility and strength, particularly given the patient's chronic right-sided weakness. Evaluation is pending and if patient is deemed to be safely discharged at home. Patient will be discharged today. So far he is stable. Medication Management: Reinforcement of the importance of taking medications for hypertension and any other prescribed medications regularly. Follow-Up Plan: Primary Care Provider: Follow up for ongoing management of chronic conditions, including hypertension, hyperlipidemia, and diabetes. Physical Therapy: Attend scheduled physical therapy sessions to improve ambulation and strength. Cardiology Consultation: Consider cardiology follow-up for management of atherosclerotic disease if not already under care. Patient Education: The patient and his son were educated on fall prevention strategies, the importance of medication adherence, and monitoring for any new symptoms or changes in condition. They were advised to ensure regular meals and medication intake to manage blood glucose levels effectively. Discharge Condition: The patient is stable and ready for discharge with instructions for continued care and follow-up appointments. Procedure(s): [facility] [address] [place], [place] [id number] IMAGING REPORT Signed PATIENT: ROLAN AGUILAR MR#: [id number] : 1955 SEX: M AGE: 69 LOCATION: [facility] ORDER 51 STATUS: ADM IN REPORT#: [id number] SERVICE 1644 REASON: fall, right sided rib pain. Please assess for rib frcature ORDERING PHYSICIAN: LIBBY SANCHEZ MD PROCEDURE: CHEST WO - CT CHEST W/O CONTRAST CT CHEST WITHOUT CONTRAST INDICATION: Right-sided rib pain after fall TECHNIQUE: Routine axial images using 5 mm slice thickness were acquired from the lung apices to the bases without the administration of IV contrast.Coronal and sagittal reformatted images acquired for interpretation. CT was performed with one or more of the following dose reduction techniques: Automated exposure control, adjustment of the mA and/or kV according to patient size, or use of iterative reconstruction technique. COMPARISON: None FINDINGS: The heart size is normal. Coronary arterial wall calcific plaque noted. No pericardial effusion noted. The visualized great vessels and thoracic aorta are within normal limits. The trachea and airways are patent. No evidence for pulmonary nodule, consolidation, cavitary lesion, or other abnormal pulmonary parenchymal opacity. 4 mm micronodular confluence of vessels within the posterior left upper lobe. Nonetheless, no further follow-up will be necessary based on 2017 Fleischner Society recommendations. No axillary, hilar, or mediastinal lymphadenopathy. No pleural effusion or pneumothorax identified. Limited views of the upper abdomen appear normal. Mild thoracic spondylosis. IMPRESSION: No evidence for rib fracture. Arteriosclerotic disease as described. DICTATED BY: ELSY BRAUN MD DATE: 11/26/241826 ELECTRONICALLY SIGNED BY: ELSY BRAUN MD DATE: 11/26/24 183 [facility] [address] [place], [place] [id number] IMAGING REPORT Signed PATIENT: ROLAN AGUILAR MR#: [id number] : 1955 SEX: M AGE: 69 LOCATION: ED ORDER 1312 STATUS: [facility] REPORT#: [id number] SERVICE 1309 REASON: pain ORDERING PHYSICIAN: TITUS FISHER PROCEDURE: SHOL 2V RT - SHOULDER COMP 2+VWS RT Exam Type: SHOULDER COMP 2+VWS RT Clinical Information: pain Comparison: None FINDINGS: The acromioclavicular joint shows hypertrophy, which may impinge upon the rotator cuff tendon. The glenohumeral joint is preserved. Visualized portions of the humerus, the scapula, and the clavicle as well as the upper ribcage are unremarkable. No pulmonary pathology is noted in the visualized portions of the upper lobe. The soft tissues are preserved. There are no other gross abnormalities. IMPRESSION: Degenerative changes of the acromioclavicular joint with hypertrophy. DICTATED BY: VAUGHN DE ANDA MD DATE: 11/26/241512 ELECTRONICALLY SIGNED BY: VAUGHN DE ANDA MD DATE: 11/26/241515 [place] [id number] IMAGING REPORT Signed PATIENT: ROLAN AGUILAR MR#: [id number] : 1955 SEX: M AGE: 69 LOCATION: [facility] ORDER 1312 STATUS: [facility] REPORT#: [id number] SERVICE 1309 REASON: pain ORDERING PHYSICIAN: TITUS FISHER PROCEDURE: RIB B W CH - RIBS BILAT INC PA CHEST 4+VWS Exam Type: RIBS BILAT INC PA CHEST 4+VWS Clinical Information: pain Comparison: None Findings: Routine views reveal no evidence of fracture, dislocation, destructive process, or other rib abnormalities. No soft tissue abnormality is noted either. There is no evidence of pneumothorax. IMPRESSION: NORMAL RIB SERIES. DICTATED BY: VAUGHN DE ANDA MD DATE: 11/26/241511 ELECTRONICALLY SIGNED BY: VAUGHN DE ANDA MD DATE: 11/26/241514 [place] [address] [place] [id number] IMAGING REPORT Signed PATIENT: ROLAN AGUILAR MR#: [id number] : 1955 SEX: M AGE: 69 LOCATION: ED ORDER 1312 STATUS: [facility] REPORT#: [id number] SERVICE 1309 REASON: pain ORDERING PHYSICIAN: TITUS FISHER PROCEDURE: HIP U 2V R - HIP UNILAT 2-3VW RIGHT Exam Type: HIP UNILAT 2-3VW RIGHT Clinical Information: pain Comparison: None Findings: The bone examination is unremarkable. No fractures or dislocations are seen. No radiopaque foreign bodies are noted. Soft tissues are preserved. IMPRESSION: Normal examination. DICTATED BY: VAUGHN DE ANDA MD DATE: 11/26/241512 ELECTRONICALLY SIGNED BY: VAUGHN DE ANDA MD DATE: 11/26/24 [facility] [place] [address] [id number] IMAGING REPORT Signed PATIENT: ROLAN AGUILAR MR#: [id number] : 1955 SEX: M AGE: 69 LOCATION: ED ORDER 11 STATUS: REG ER REPORT#: [id number] SERVICE 130 REASON: Fall, head injury ORDERING PHYSICIAN: TITUS FISHER PROCEDURE: HEAD WO - CT HEAD/BRAIN W/O CONTRAST Exam Type: CT HEAD/BRAIN W/O CONTRAST Clinical Information: Fall, head injury Comparison: None CT Dose Index (CTDI): 57.33 mGy Dose Length Product (DLP): 956.79 total mGy-cm Findings: The examination shows atrophy. There is low attenuation throughout the periventricular white matter locations, consistent with chronic small vessel ischemic changes. In addition, there is is evidence of an old infarct manifesting as encephalomalacia of the right cerebellar hemisphere. No acute intra- or extra-axial fluid collections are seen. There is no evidence of acute or chronic hemorrhage. There is no mass effect or shift of midline structures. The skull windows show no significant acute abnormalities. Postcraniotomy changes left parietal bone seen. IMPRESSION: 1. ATROPHY AND CHRONIC ISCHEMIC CHANGES. This study was performed using dose reduction techniques to include automated exposure control and/or adjustment of the mA and/or kV according to patient size. DICTATED BY: VAUGHN DE ANDA MD DATE: 11/26/241401 ELECTRONICALLY SIGNED BY: VAUGHN DE ANDA MD DATE: 11/26/241405 [address] [place] [id number] IMAGING REPORT Signed PATIENT: ROLAN AGUILAR MR#: [id number] : 1955 SEX: M AGE: 69 LOCATION: [facility] ORDER 1312 STATUS: [facility] REPORT#: [id number] SERVICE 1309 REASON: pain ORDERING PHYSICIAN: TITUS FISHER PROCEDURE: FORARMR - FOREARM 2VWS RT Exam Type: FOREARM 2VWS RT Clinical Information: pain Comparison: None Findings: The bone examination is unremarkable. No fractures or dislocations are seen. No radiopaque foreign bodies are noted. Soft tissues are preserved. IMPRESSION: Normal examination. DICTATED BY: VAUGHN DE ANDA MD DATE: 11/26/241512 ELECTRONICALLY SIGNED BY: VAUGHN DE ANDA MD DATE: 11/26/241515 Assessment/Plan: Admitting Diagnoses: Mechanical fall POA Right upper extremity swelling secondary to fall with negative imaging. Right-sided chest pain secondary to fall Debility History of CVA x3 with right-sided deficit Hypertension with noncompliance to medication Hyperlipidemia Diabetes mellitus type 2 Discharge Diagnoses: Mechanical fall POA Right upper extremity swelling secondary to fall with negative imaging. Right-sided chest pain secondary to fall Debility History of CVA x3 with right-sided deficit Hypertension with noncompliance to medication Hyperlipidemia Diabetes mellitus type 2 Discharge Instructions: Follow up with PCP in 2-3 days Home Medications: Active Scripts Atorvastatin Calcium (LIPITOR) 40 Mg Tablet, 40 MG PO DAILY, #30 TAB Prov:JIGNA PATEL MD 02/17/24 Reported Medications Tamsulosin HCl (Flomax) 0.4 Mg Cap.er.24h, 1 CAP PO DAILY for 30 Days, #30 CAP 0 Refills 11/27/24 Metformin HCl (Metformin HCl) 1,000 Mg Tablet, 1 TAB PO BID for 30 Days, #60 TAB 0 Refills 11/27/24 Gabapentin (Gabapentin) 100 Mg Capsule, 1 CAP PO BID PRN for PAIN MDD 200MG for 30 Days, #90 CAP 0 Refills 11/27/24 Amlodipine Besylate (Amlodipine Besylate) 5 Mg Tablet, 1 TAB PO DAILY for 30 Days, #30 TAB 0 Refills 11/27/24 Cyclobenzaprine HCl (Cyclobenzaprine HCl) 5 Mg Tablet, 1 TAB PO TIDP PRN for muscle spasms for 10 Days, #30 TAB 0 Refills 11/27/24 Discontinued Scripts Aspirin (Aspirin) 81 Mg Tab.chew, 81 MG PO Q24H, #30 TAB.CHEW Prov:JIGNA PATEL MD 02/17/24 Time spent arranging discharge: 31-60 minutes ATTESTATION BY PHYSICIAN I have seen and examined the patient. I reviewed the documentation, medical decision making, and treatment plan as noted by the mid-level provider above. I agree with the findings and plan of care. CLINT MARTINEZ MD, [facility] November 28, 2024 15:21
[2024-11-28 15:59] VITALS: BP 122/97; PULSE 90; RESP 18; TEMP 98
--- NOTE | 2024-11-28 16:23 | HMCSR ---
APPROVED REPORT EXAM: Two-dimensional and M-mode echocardiogram with Doppler and color Doppler. INDICATION ICD: Status fall, dizziness 2D Dimensions RVDd3.2 cmLVEF(%)64.3 (>50%)LVED Vol(simp.)89.0 mL IVSd1.1 (0.7-1.1cm)FS(%)35 %LVES Vol(simp.)36.0 mL LVDd4.2 (3.8-5.6cm)LA (2D)3.5 (1.6-4.0cm)LVEF(%, simp.)60 % PWd0.9 (0.7-1.1cm)Ao Root(2D)3.4 (2.0-3.7cm)LA ESV INDEX (BP)23.10 mL/m2 IVSs1.1 cmLVOT diam2.2 (1.8-2.4cm) LVDs2.7 (2.5-4.0cm) PWs1.3 cm Deformation Strain Apical 4-15.5 % Apical 2-18.0 % Apical 3-14.9 % Global Strain-16.1 % M-Mode Dimensions EPSS0.4 cm LA (MM)3.8 (1.6-4.0cm) Ao Root(MM)3.4 (2.0-3.7cm) Aortic Valve AoV Vmax1.8 m/Anny Peak GR13.1 mmHgLVOT Vmax0.9 m/s AoV VTI0.3 mAo Mean GR6.7 mmHgLVOT VTI0.20 m ROSY (VMAX)1.91 cm2AVA (VTI) 2.2 cm2 Mitral Valve MV E Vmax65.7 cm/sDECEL Wiew275 ms MV A Vmax81.0 cm/sP 1/2 T81 ms E/A ratio0.8MVA (PHT)2.7 cm2 TDI E/E' Zyrrbx34.5E/E' Lateral8.6 Medial E' Peak V5.73 cm/sLateral E' Peak V7.60 cm/s Pulmonary Valve PV Vmax0.7 m/sPV VTI0.13 mPV Mean GR1.1 mmHg PV Peak GR2.0 mmHg Tricuspid Valve TR Vmax1.8 m/sRVSP13.0 mmHg TR Peak GR13.0 mmHg Left Ventricle The left ventricle is normal size. Normal wall motion There is normal left ventricular wall thickness . LVEF is 60-65%. Normal diastolic dysfunction. Right Ventricle The right ventricle is normal size. The right ventricular systolic function is normal. Atria The left atrium size is normal. The right atrium size is normal. Aortic Valve Thickened and calcified aortic valve leaflets Trace of aortic regurgitation is present. There is no a ortic valvular stenosis. Mitral Valve The mitral valve is normal in structure. There is no mitral valve regurgitation noted. There is no mi tral valve stenosis. Tricuspid Valve The tricuspid valve is normal in structure. There is no tricuspid valve regurgitation noted. Pulmonic Valve The pulmonary valve is normal in structure. There is no pulmonic valvular regurgitation. Great Vessels The aortic root is normal in size. The IVC is normal in size and collapses >50% with inspiration. Pericardium There is no pericardial effusion. Other Information Quality : Adequate Conclusion LVEF is 60-65%. There is normal left ventricular wall thickness. The left ventricle is normal size. Normal wall motion Normal diastolic dysfunction. Thickened and calcified aortic valve leaflets There is no pericardial effusion. Normal pulmonary pressures Study quality was adequate
[2024-11-29] MEDS ORDERED: ENOXAPARIN SODIUM 30 MG/0.3 ML SQ SCH (09:00)
== END 2024-11-28 18:37 | disposition home or self-care (01) ==
LOC: EDH 12:13 → INTOOBSV 16:46 → EDHIP 16:46 → 3CH 18:31
PROVIDERS: ADMIT Internal Medicine; ATTEND Internal Medicine
DX: M79.89 Other specified soft tissue disorders (principal); M19.011 Primary osteoarthritis, right shoulder; I70.90 Unspecified atherosclerosis; I10 Essential (primary) hypertension; E11.65 Type 2 diabetes mellitus with hyperglycemia; E78.5 Hyperlipidemia, unspecified; R07.81 Pleurodynia; S09.90XA Unspecified injury of head, initial encounter; M79.604 Pain in right leg; R53.81 Other malaise; Z91.148 Patient's other noncompliance with medication regimen for other reason; Z79.84 Long term (current) use of oral hypoglycemic drugs; Z79.899 Other long term (current) drug therapy; W19.XXXA Unspecified fall, initial encounter; Y93.89 Activity, other specified; Y92.89 Other specified places as the place of occurrence of the external cause; Y99.8 Other external cause status
CPT/HCPCS: 99284; 83036 ×2; 84443; 84484; 80048 ×4; 85025 ×2; 82948 ×8; 86140; 81001; 36415 ×3; 71111; 73090; 73502; 73030; 70450; 71250; 96372; 93005; 84145; 96360; 96361 ×4; 85027; 93306; 93356; 97161; 92610; G0378 ×29; J2270; J1815; 99285

== ENCOUNTER 2025-04-09 23:27 | Observation (INO) | payer OTHER ==
[~2025-04-09] VITALS: Ht 172.7 cm; Wt 89.1 kg
[~2025-04-09 23:27] MED LIST changes: +AMLO-257 PO; -ASPI-1197 PO; +GABA-529 PO; +METF-446 PO; +TAMS-55 PO
[2025-04-09 23:54] LABS: IMMATURE GRANULOCYTE ABSOLUTE 0.03 K/uL (0-1); NUCLEATED RED BLOOD CELLS 0.0 % (0.0-0.19); PLATELET COUNT (AUTO) 251 K/uL (130-400); RED BLOOD CELL COUNT(AUTO) 4.85 MIL/uL (4.50-6.20); RED CELL DISTRIBUTION WIDTH 13.6 % (11.0-15.5); WHITE BLOOD COUNT (AUTO) 12.1 K/uL (4.8-10.8)
[2025-04-10 00:05] LABS: CREATININE 0.9 mg/dL (0.5-1.3); GLOMERULAR FILTR. RATE CALC 93.0 mL/min (>90); GLUCOSE,RANDOM 155.0 mg/dL (70-105); SODIUM SERUM 142.0 mmol/L (136-145); UREA NITROGEN, BLOOD 18.0 mg/dL (7-18)
[2025-04-10 00:06] LABS: INR 1.02 (0.85-1.15)
[2025-04-10 00:10] LABS: CREATINE KINASE, TOTAL 97.0 U/L (21-232)
--- NOTE | 2025-04-10 00:24 | ERN ---
General Chief Complaint: Chest Pain Stated Complaint: C/O CP WITH SOB W/HICCUPS Time Seen by MD: 23:30 Source: patient History of Present Illness Initial Comments Patient is a 69-year-old male coming in complaining of chest pain and shortness of breath. Per patient [place] States that he has been having chest pain all day today and shortness of breath. Long with the as he has been having hiccups since the surgery. Allergies: Coded Allergies: No Known Drug Allergies (Unverified Allergy, Unknown, 09/11/23) Home Meds Active Scripts Atorvastatin Calcium (LIPITOR) 40 Mg Tablet, 40 MG PO DAILY, #30 TAB Prov:JIGNA PATEL MD 02/17/24 Reported Medications Tamsulosin HCl (Flomax) 0.4 Mg Cap.er.24h, 1 CAP PO DAILY for 30 Days, #30 CAP 0 Refills 11/27/24 Metformin HCl (Metformin HCl) 1,000 Mg Tablet, 1 TAB PO BID for 30 Days, #60 TAB 0 Refills 11/27/24 Gabapentin (Gabapentin) 100 Mg Capsule, 1 CAP PO BID PRN for PAIN MDD 200MG for 30 Days, #90 CAP 0 Refills 11/27/24 Amlodipine Besylate (Amlodipine Besylate) 5 Mg Tablet, 1 TAB PO DAILY for 30 Days, #30 TAB 0 Refills 11/27/24 Past Medical History Past Medical History: CVA, Diabetes-Type II, Hypertension Past Surgical History: Other Surgical History Other: CARDIAC STENT A WK AGO Family History Family History: Negative ROS Dictation CONSTITUTIONAL: No chills, no fever, no weakness, no diaphoresis, no malaise. HEAD/FACE: No signs of trauma. EENT: No eye pain, no blurred vision, no tearing, no double vision, no ear pain, no ear discharge, no nose pain, no nasal congestion, no throat pain, no throat swelling, no mouth pain. RESPIRATORY: No cough, no orthopnea, no SOB, no stridor, no wheezing. CARDIOVASCULAR: No chest pain, no edema, no palpitations, no syncope. GASTROINTESTINAL/ABDOMINAL: No abdominal pain, no constipation, no diarrhea, no nausea, no vomiting. GENITOURINARY: No abnormal discharge, no dysuria, no frequent urination, no hematuria. No complaints of pain in the genitals. MUSCULOSKELETAL: No back pain, no gout, no joint pain, no joint swelling, no muscle pain, no muscle stiffness, no neck pain. INTEGUMENTARY: No change in color, no change in hair/nails, no dryness, no lesion, no lumps, no rash. NEUROLOGICAL/PSYCH: No anxiety, not depressed, no emotional problem, no headache, no numbness, no pre-existing deficit, no history of seizures, no tremors, no weakness. HEMATOLOGIC/LYMPHATIC: Not anemic, no history of blood clots, no apparent bleeding, no bruising, glands not swollen. All Systems Negative, Except as Noted. Physical Exam Physical Exam Dictation VITAL SIGNS: Reviewed. GENERAL APPEARANCE: Alert, oriented x3, no acute distress, obese. HEAD AND FACE: Non-traumatic. EYES: PERRL, pink conjunctivas, eyelid no trauma, anterior chamber clear. EARS: Pinnas intact and no signs of trauma or erythema. Ear canals clear and no discharge. TMs no erythema. NOSE: No discharge, no bleeding. OROPHARYNX: Mouth normal, teeth no caries, tongue pink. Pharynx clear, no erythema. Tonsils no exudates, no abscesses noted. Mucous membrane moist. NECK: Supple, non-tender, no thyromegaly, no masses, no JVD, no bruits. BREAST: Deferred. CHEST: No tenderness, no crepitus, no paradoxical movement, no retractions. LUNGS: Clear, well-ventilated, symmetric, no rales, no wheezing, no rhonchi, no stridor, good breath sounds bilaterally. HEART: Regular rate, regular rhythm, no murmur, no gallops. VASCULAR: No peripheral edema. ABDOMEN: Soft, positive bowel sounds, nondistended, no guarding, nontender, no rebound, no masses no hepatomegaly, no splenomegaly, no Knott's sign, no her nias. RECTAL: Deferred. GENITAL: Deferred. NEUROLOGICAL: Normal speech, gross motor function intact, gross sensory function intact. MUSCULOSKELETAL: Neck nontender, full range of motion, back nontender, full range of motion. EXTREMITIES: Nontender, full range of motion. SKIN: Color pink, dry, no turgor, no rash, no lacerations, no abrasions, no contusions. LYMPHATICS: Deferred. Results Laboratory and Microbiology Lab and Micro Result Laboratory Tests Test 04/09/25 23:46 04/10/25 01:36 White Blood Count 12.1 K/uL (4.8-10.8) H Red Blood Count 4.85 MIL/uL (4.50-6.20) Hemoglobin 14.7 g/dL (14.0-18.0) Hematocrit 44.6 % (42-54) Mean Corpuscular Volume 92.0 fL (79-99) Mean Corpuscular Hemoglobin 30.3 pg (27.0-33.0) Mean Corpuscular Hemoglobin Concent 33.0 g/dL (32.0-36.0) Red Cell Distribution Width 13.6 % (11.0-15.5) Platelet Count 251 K/uL (130-400) Mean Platelet Volume 10.8 fL (7.5-10.5) H Immature Granulocyte % (Auto) 0.2 % (0-1) Neutrophils (%) (Auto) 65.2 % (40.0-77.0) Lymphocytes (%) (Auto) 24.8 % (21.0-51.0) Monocytes (%) (Auto) 5.9 % (3.0-13.0) Eosinophils (%) (Auto) 3.2 % (0.0-8.0) Basophils (%) (Auto) 0.7 % (0.0-5.0) Neutrophils # (Auto) 7.9 K/uL (1.8-7.7) H Lymphocytes # (Auto) 3.0 K/uL (1.0-4.8) Monocytes # (Auto) 0.7 K/uL (0.1-1.0) Eosinophils # (Auto) 0.39 K/uL (0.00-0.70) Basophils # (Auto) 0.09 K/uL (0.00-0.20) Absolute Immature Granulocyte (auto 0.03 K/uL (0-1) Nucleated Red Blood Cells 0.0 % (0.0-0.19) Prothrombin Time 10.8 SEC (9.6-11.6) Prothromb Time International Ratio 1.02 (0.85-1.15) Activated Partial Thromboplast Time 32.1 SEC (26.3-35.5) Sodium Level 142 mmol/L (136-145) Potassium Level 5.1 mmol/L (3.5-5.1) Chloride Level 106 mmol/L (101-111) Carbon Dioxide Level 26 mmol/L (21-32) Blood Urea Nitrogen 18 mg/dL (7-18) Creatinine 0.9 mg/dL (0.5-1.3) Glomerular Filtration Rate Calc 93 mL/min (>90) Random Glucose 155 mg/dL (70-105) H Total Calcium 8.9 mg/dL (8.5-10.1) Magnesium Level 2.00 mg/dL (1.80-2.40) Total Creatine Kinase 97 U/L (21-232) # Troponin I High Sensitivity 37 ng/L (4-75) 33 ng/L (4-75) B-Type Natriuretic Peptide 37 pg/mL (0-100) Labs Reviewed?: Yes EKG/XRAY/US/CT/MRI EKG Comment 04/09/2025 time 11:31 p.m. Ventricular rate 85 Sinus rhythm ID [id number] wave elevation or depression MDM MDM: Differential diagnosis: Chest pain, status post stent placement, Rationale: Tests considered and ordered secondary to shared decision making include: labs, ECG and radiology Previous outside records reviewed: Old ER visits. Risk of complication and/or morbidity or mortality of patient management: None Medications-Per medication reconciliation Need for hospitalization: Patient does meet criteria for hospitalization. Need for emergency major/minor surgery: No There are no social concerns with this patient. Prescription drug management Prescriptions will include symptomatic care Patient's prior external medical records from other ER visits were reviewed by me as indicated. Prior testing and results from previous visits were reviewed. Prior tests were taken into account with medical decision making and resource utilization, independent historian/historians were used to obtain complete medical history. I independently interpreted the test that were performed, results were reviewed by me and considered findings on radiology if ordered. Medical management and examination interpretation discussions were had by me with other qualified healthcare professionals as indicated for the patient's care. She will be admitted under the care of hospitalist group for ongoing management ED Course Orders Procedure Category Date Status Time Cbc With Differential LAB 04/09/25 Complete 23:31 Prothrombin Time With LAB 04/09/25 Complete INR 23:31 Chest 1vw RAD 04/09/25 Resulted 23:31 12 Lead Ekg Tracing- EKG 04/09/25 Logged Technical 23:31 Magnesium LAB 04/09/25 Complete 23:31 Creatine Kinase, Total LAB 04/09/25 Complete 23:31 Troponin I High LAB 04/09/25 Complete Sensitivity 23:31 Urinalysis Profile LAB 04/09/25 Logged 23:31 Partial LAB 04/09/25 Complete Thromboplastin Time 23:31 Basic Metabolic Panel LAB 04/09/25 Complete 23:31 B-Type Natriuretic LAB 04/09/25 Complete Peptide 23:31 Troponin I High LAB 04/10/25 Complete Sensitivity 01:29 Baclofen (Baclofen) PHA 04/10/25 Complete 02:52 Baclofen (Baclofen) PHA 04/10/25 Complete 03:05 Current Medications Medications (Trade) Dose Ordered Sig/Zully Route PRN Reason Start Time Stop Time Status Last Admin Dose Admin Baclofen (Baclofen) 5 mg ONCE STAT PO 04/10/25 02:52 04/10/25 03:11 DC 04/10/25 03:12 Baclofen (Baclofen) 10 mg STK-MED ONCE .ROUTE 04/10/25 03:05 04/10/25 03:05 DC Vital Signs Date Time Temp Pulse Resp B/P (MAP) Pulse Ox O2 Delivery O2 Flow Rate FiO2 04/09/25 23:48 98.1 75 18 110/66 99 Room Air* 0 21 04/09/25 23:31 98.8 89 20 157/97 97 Room Air DX & DISP Disposition: Inpatient Decision to Admit Time: 04:20 Departure Impression: Primary Impression: Chest pain Additional Impression: Status post arterial stent Condition: Stable Referrals: DARRYL HORVATH DO (PCP) TALIA TRIPATHI MD Apr 10, 2025 00:23
--- NOTE | 2025-04-10 02:32 | HMCIMG ---
EXAM: CR Chest, 1 view CLINICAL HISTORY: Chest pain. COMPARISON: Chest radiograph dated 02/21/2025. FINDINGS: The lungs show no infiltrates or other acute findings. No pleural effusion or pneumothorax. The cardiomediastinal silhouette is within normal limits. No acute osseous abnormality. IMPRESSION: No acute cardiopulmonary process is evident. Compared to the prior study, there is no significant interval change. /[place]
[2025-04-10] MEDS: BACLOFEN 10 MG TABLET PO STA (03:12)
[2025-04-10] MEDS: BACLOFEN 10 MG TABLET ONE (03:17)
--- NOTE | 2025-04-10 04:10 | NUR ---
SARAH ALLERGIST IMMUNOLOGIST AT BEDSIDE AT THIS TIME
[2025-04-10] MEDS ORDERED: NITROGLYCERIN 0.4 MG SL TAB SL PRN (05:00)
[2025-04-10] MEDS ORDERED: LACTULOSE 20 GM/30 ML UDCUP PO PRN (05:00)
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
[2025-04-10 05:42] LABS: IMMATURE GRANULOCYTE ABSOLUTE 0.04 K/uL (0-1); NUCLEATED RED BLOOD CELLS 0.0 % (0.0-0.19); PLATELET COUNT (AUTO) 237 K/uL (130-400); RED BLOOD CELL COUNT(AUTO) 4.41 MIL/uL (4.50-6.20); RED CELL DISTRIBUTION WIDTH 13.4 % (11.0-15.5); WHITE BLOOD COUNT (AUTO) 11.7 K/uL (4.8-10.8)
[2025-04-10 06:03] LABS: ASPARTATE AMINOTRANSFERASE 14.0 U/L (10-37); CREATININE 0.9 mg/dL (0.5-1.3); GLOMERULAR FILTR. RATE CALC 93.0 mL/min (>90); GLUCOSE,RANDOM 97.0 mg/dL (70-105); SODIUM SERUM 144.0 mmol/L (136-145); TOTAL PROTEIN, SERUM 7.0 g/dL (6.0-8.3); UREA NITROGEN, BLOOD 18.0 mg/dL (7-18)
[2025-04-10] MEDS ORDERED: CLOP75TA32 PO (06:21)
[2025-04-10] MEDS ORDERED: AMLO-258 PO (06:21)
[2025-04-10] MEDS ORDERED: METO-408 PO (06:21)
[2025-04-10] MEDS ORDERED: CYCL5TAB3 PO (06:21)
[2025-04-10] MEDS ORDERED: METF-446 PO (06:21)
[2025-04-10] MEDS ORDERED: TAMS-55 PO (06:21)
[2025-04-10] MEDS ORDERED: ASPI-1197 PO (06:21)
[2025-04-10] MEDS ORDERED: ATOR40TA69 PO (06:21)
[2025-04-10] MEDS ORDERED: GABA-529 PO ×2 (06:21→21:10)
--- NOTE | 2025-04-10 06:59 | EKG ---
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
[2025-04-10] MEDS ORDERED: ASPIRIN 81MG CHEW TAB PO SCH (09:00)
[2025-04-10] MEDS ORDERED: IOHEXOL-350 75 ML VIAL IV ONE (09:04)
--- NOTE | 2025-04-10 09:36 | HMCIMG ---
EXAM: CTA Chest with and without Intravenous Contrast for PE evaluation CLINICAL HISTORY: Elevated D-dimer TECHNIQUE: Axial CTA images of the chest with and without intravenous contrast using a pulmonary embolism protocol. Multiplanar reconstructed images were created and reviewed. CONTRAST: None. was administered without incident. COMPARISON: None provided. FINDINGS: PULMONARY ARTERIES: No evidence of central or segmental pulmonary embolism is seen. AORTA: There is no evidence for aneurysm or dissection of the thoracic aorta. LUNGS: The lungs appear clear. PLEURAL SPACES: No pleural effusion seen. No pneumothorax evident. HEART: Normal heart size. No significant pericardial effusion. LYMPH NODES: No lymphadenopathy is evident. BONES: Mild degenerative change of the spine. UPPER ABDOMEN: Images of the upper abdomen are unremarkable. IMPRESSION: 1. No acute intrathoracic findings. 2. No evidence of pulmonary embolism. /Brittney
[2025-04-10] MEDS: amLODIPine 5 MG TAB PO SCH (11:09)
[2025-04-10] MEDS: FAMOTIDINE 20MG TAB PO SCH (11:10)
[2025-04-10] MEDS: ASPIRIN 81 MG EC TAB PO SCH (11:10)
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
--- NOTE | 2025-04-10 17:02 | NUR ---
DCP: HOME Pt lives with his Brandy Paige [phone]. Pt is a retired career services manager, states he remains independent of all his ADLS, has cane, walker and shower chair at home. Uses no HH or HD services. PCP is N[facility] J[facility] and uses [facility] for rx needs. Pt denies need for SNF, wants to dc home. Addendum: 04/10/25 at 1714 by JERRY BARNES Amended: Links added.
--- NOTE | 2025-04-10 17:20 | NUR ---
[facility] CONS[facility] AT BEDSIDE
--- NOTE | 2025-04-10 18:13 | PN ---
[facility] PROGRESS NOTE Date of Service: Apr 10, 2025 Time of Service: 17:54 SUBJECTIVE: This is a 69-year-old male with past medical history of diabetes, hypertension, hyperlipidemia, CVA with right-sided weakness 2018, and coronary artery disease with cardiac stent x2 who presented to the ED for complaints of chest pain, shortness of breaths and hiccups . Son was at bedside and states patient recently had a cardiac stent x2 that was done at [place] by Dr. Ifrah Pardo and had to stay in the hospital for 2 days and came back here to [place] and patient started having persistent hiccups and mild chest pain 2/10 and mild shortness of breath.Patient denies cough,edema,orthopnea,fever,nausea,vomiting and abdominal pain.On examination patient is awake,alert and coherent,continue to have hiccups.V/S temperature 98.1, heart rate 75, blood pressure 110/66, saturation 99% on room air. Labs: WBC 12, hemoglobin 14, hematocrit 44, platelet count 251. Random glucose 155 the rest of the chemistries normal BNP 37 troponin 37 and 33. ECG result revealed sinus rhythm heart rate 85. Chest x-ray result revealed no acute cardiopulmonary process is evident. While in the ER patient was given baclofen 5 mg p.o. we will admit patient for further medical management. 04/10/2025: He was evaluated bedside this morning. He is AAO x3. He was complaining of mild shortness of breath which I think is secondary to the continuous hiccups that he has for last 1 week. He was also complaining of chest discomfort which was reproducible on palpation on the left chest probably secondary to musculoskeletal. He has a undergone coronary stenting on 03 of April. Remarkable lab is for magnesium 1.9, D-dimer 531. CT angio chest ruled out pulmonary embolism. EKG revealed sinus rhythm with unremarkable troponin trend. Cardiology consulted. Continued on aspirin 81 mg, Plavix 75 and atorvastatin 40, amlodipine 10 mg, tamsulosin 0.4, metoprolol succinate 25 mg.. Rest of the plan as discussed below REVIEW OF SYSTEMS CONSTITUTIONAL: Denies fevers, chills, or night sweats. No unintentional weight loss reported. NEUROLOGICAL: Denies headache, amaurosis fugax, motor weakness, sensory deficit, vertigo/spinning sensation, gait abnormalities, or tremors. ENT: No hearing loss, otalgia, otorrhea, rhinitis, rhinorrhea, hoarseness, or sore throat. CARDIOVASCULAR: Complaints of chest pain Deniesdyspnea on exertion, orthopnea, paroxysmal nocturnal dyspnea, palpitations, life-threatening arrhythmias, claudication. PULMONARY: Complains of persistent hiccups and shortness of breaths Denies cough, phlegm/sputum, hemoptysis, pleuritic chest pain. SLEEP: Denies morning headaches, daytime somnolence or napping. Denies difficulty falling asleep, staying asleep, waking from sleep. Denies knowledge of snoring. GASTROINTESTINAL: Denies any type of dysphagia to either liquids or solids. Denies nausea, vomiting, pyrosis, early satiety, abdominal pain, diarrhea, constipation, or changes in stool consistency or caliber. Denies coffee-ground emesis, hematemesis, hematochezia, or melanotic stools. GENITOURINARY: Denies frequency, urgency, nocturia, hematuria or incontinence (Storage/Irritative symptoms.) Low urinary stream, straining to void, urinary intermittency or hesitancy, splitting of the voiding stream, terminal dribbling. ENDOCRINOLOGIC: Denies polyuria, polydipsia, polyphagia or heat/cold intolerances. HEMATOLOGIC: Denies thrombophilia/previous clots, or coagulopathy/bleeding disorders. ONCOLOGIC: Denies personal history of malignancy. DERMATOLOGIC: Denies rashes or pruritus. PSYCHIATRIC: Denies any suicidal or homicidal ideation. Denies hallucinations. PHYSICAL EXAM GENERAL APPEARANCE: The patient is awake, alert, and oriented, in no acute cardiopulmonary distress. NEUROLOGICAL: Cranial nerves II-XII grossly intact. Right-sided weakness No sensory deficits. HEENT: Face is symmetric. Pupils are equal and reactive. Extraocular movements are intact. NECK: Supple. No JVD. No thyromegaly. No submental, submandibular, pre- /postauricular, occipital or supraclavicular lymphadenopathy. CHEST: Normal chest expansion. No Telemetry. LUNGS: Absence of any rales, rhonchi or any wheezing. CARDIOVASCULAR: Regular. S1 and S2 normal. No appreciable rubs, murmurs or gallops. ABDOMEN: Soft, nontender, and nondistended. There is no rebound, voluntary guarding, or rigidity. : Deferred. No Osorio. EXTREMITIES: Non-edematous and not cyanotic. No clubbing. Good capillary refill. SKIN: No skin breakdown. Vital Signs (last 8hr) Date Time Temp Pulse Resp B/P (MAP) Pulse Ox O2 Delivery O2 Flow Rate FiO2 04/10/25 11:00 98.1 72 20 109/63 97 Room Air* 0 21 LABS: Laboratory: Test 04/10/25 10:41 04/10/25 05:16 04/09/25 23:46 Range/Units Troponin I High Sensitivity 26 4-75 ng/L White Blood Count 11.7 H 4.8-10.8 K/uL Red Blood Count 4.41 L 4.50-6.20 MIL/uL Hemoglobin 13.4 L 14.0-18.0 g/dL Hematocrit 40.9 L 42-54 % Mean Corpuscular Volume 92.7 79-99 fL Mean Corpuscular Hemoglobin 30.4 27.0-33.0 pg Mean Corpuscular Hemoglobin Concent 32.8 32.0-36.0 g/dL Red Cell Distribution Width 13.4 11.0-15.5 % Platelet Count 237 130-400 K/uL Mean Platelet Volume 10.8 H 7.5-10.5 fL Immature Granulocyte % (Auto) 0.3 0-1 % Neutrophils (%) (Auto) 65.5 40.0-77.0 % Lymphocytes (%) (Auto) 24.7 21.0-51.0 % Monocytes (%) (Auto) 6.2 3.0-13.0 % Eosinophils (%) (Auto) 2.7 0.0-8.0 % Basophils (%) (Auto) 0.6 0.0-5.0 % Neutrophils # (Auto) 7.7 1.8-7.7 K/uL Lymphocytes # (Auto) 2.9 1.0-4.8 K/uL Monocytes # (Auto) 0.7 0.1-1.0 K/uL Eosinophils # (Auto) 0.32 0.00-0.70 K/uL Basophils # (Auto) 0.07 0.00-0.20 K/uL Absolute Immature Granulocyte (auto 0.04 0-1 K/uL Nucleated Red Blood Cells 0.0 0.0-0.19 % D-Dimer Quantitative (PE/DVT) 531 *H 0-500 ng/mL Sodium Level 144 136-145 mmol/L Potassium Level 4.4 3.5-5.1 mmol/L Chloride Level 107 101-111 mmol/L Carbon Dioxide Level 28 21-32 mmol/L Blood Urea Nitrogen 18 7-18 mg/dL Creatinine 0.9 0.5-1.3 mg/dL Glomerular Filtration Rate Calc 93 >90 mL/min Random Glucose 97 70-105 mg/dL Total Calcium 8.8 8.5-10.1 mg/dL Magnesium Level 1.90 1.80-2.40 mg/dL Total Bilirubin 0.4 0.2-1.0 mg/dL Aspartate Amino Transf (AST/SGOT) 14 10-37 U/L Alanine Aminotransferase (ALT/SGPT) 22 12-78 U/L Alkaline Phosphatase 82 50-136 U/L Total Protein 7.0 6.0-8.3 g/dL Albumin 3.4 L 3.5-5.0 g/dL Prothrombin Time 10.8 9.6-11.6 SEC Prothromb Time International Ratio 1.02 0.85-1.15 Activated Partial Thromboplast Time 32.1 26.3-35.5 SEC Total Creatine Kinase 97 # 21-232 U/L B-Type Natriuretic Peptide 37 0-100 pg/mL Current Medications Medications (Trade) Dose Ordered Sig/Zully Route PRN Reason Start Time Stop Time Status Last Admin Dose Admin Acetaminophen (TYLenol 325MG TAB) 650 mg Q4H PRN PO MILD PAIN (1-3) 04/10/25 05:00 05/10/25 04:59 Acetaminophen (TYLenol 325MG TAB) 650 mg Q6H PRN PO TEMPERATURE GREATER THAN 101.5 04/10/25 05:00 05/10/25 04:59 Amlodipine Besylate (NorvASC 5MG TAB) 10 mg DAILY PO 04/10/25 09:00 05/10/25 08:59 04/10/25 11:09 10 MG Aspirin (Aspirin 81mg Chew Tab) 81 mg DAILY PO 04/10/25 09:00 04/10/25 08:26 DC Aspirin (Aspirin 81mg Ec Tab) 81 mg DAILY PO 04/10/25 09:00 05/10/25 08:59 04/10/25 11:10 81 MG Atorvastatin Calcium (LIPItor 40MG) 40 mg DAILY PO 04/10/25 09:00 05/10/25 08:59 04/10/25 11:09 40 MG Baclofen (Baclofen) 5 mg ONCE STAT PO 04/10/25 02:52 04/10/25 03:11 DC 04/10/25 03:12 5 MG Chlorpromazine HCl (ThorAZINE 25MG TAB) 25 mg TID PRN PO HICCUPS 04/10/25 05:00 05/10/25 04:59 Clopidogrel Bisulfate (plaVIX 75MG) 75 mg DAILY PO 04/10/25 09:00 05/10/25 08:59 04/10/25 11:08 75 MG Famotidine (Pepcid 20mg Tab) 20 mg BID PO 04/10/25 09:00 05/10/25 08:59 04/10/25 11:10 20 MG Gabapentin (NEURontin 100 mg CAP) 100 mg TID PO 04/10/25 09:00 05/10/25 08:59 04/10/25 14:59 100 MG Lactulose (Constulose 20gm/ 30ml Udcup) 20 gm BID PRN PO CONSTIPATION 04/10/25 05:00 05/10/25 04:59 Metformin HCl (glucoPHAGE) 1,000 mg BIDMEALS PO 04/10/25 17:00 05/10/25 16:59 04/10/25 17:17 1,000 MG Metoprolol Succinate (TopROL XL) 25 mg DAILY PO 04/10/25 09:00 05/10/25 08:59 04/10/25 11:06 25 MG Nitroglycerin (Nitrostat) 0.4 mg PROTOCOL PRN SL CHEST PAIN 04/10/25 05:00 05/10/25 04:59 Ondansetron HCl (zoFRAN 4MG INJ) 4 mg Q6H PRN IV NAUSEA/VOMITING 04/10/25 05:00 05/10/25 04:59 Tamsulosin HCl (FloMAX) 0.4 mg DAILY PO 04/10/25 09:00 05/10/25 08:59 04/10/25 11:06 0.4 MG DIAGNOSTICS / RADIOLOGY: [ ] ASSESSMENT: Chest pain rule out ACS POA Persistent hiccups POA Recent cardiac stent x2 POA Coronary artery disease POA Hypertension POA Hyperlipidemia POA Diabetes POA CVA with right-sided weakness POA PLAN: Patient admitted on telemetry. -continue Plavix 75 mg, [id number] mg, atorvastatin 40 mg, amlodipine 10 mg daily. -for the atypical chest discomfort, cardiac enzyme negative x4, EKG showed normal sinus rhythm without any acute ischemia noted. Chest discomfort including shortness of breath may be secondary to persistent hiccup. -started on low-dose sliding scale insulin GI prophylaxis: Famotidine DVT prophylaxis: SCD ATTESTATION BY PHYSICIAN I have seen and examined the patient. I reviewed the documentation, medical decision making, and treatment plan as noted by the resident provider above. I agree with the findings and plan of care. Carmelo Alvarado IV, MD, SUNIL MD Apr 10, 2025 18:13
[2025-04-10] MEDS ORDERED: DEXTROSE 50%-WATER 50 ML DISP.SYRIN IV PRN (18:30)
[2025-04-10] MEDS ORDERED: GLUCAGON 1MG KIT 1 MG ML IM PRN (18:30)
[2025-04-10 18:31] LABS: APPEARANCE,URINE CLEAR (CLEAR); GLUCOSE, URINE (UA) NEGATIVE (NEGATIVE); LEUKOCYTE ESTERASE ,URINE NEGATIVE Leu/uL (NEGATIVE); NITRATE,URINE NEGATIVE (NEGATIVE); OCCULT BLOOD,URINE NEGATIVE (NEGATIVE)
[2025-04-10 18:35] LABS: ADD UA MICROSCOPIC YES
[2025-04-10 18:37] LABS: SQUAMOUS EPITHELIAL CELL,UR RARE /HPF (0-2)
[2025-04-10 21:08] VITALS: BP 121/78; PULSE 64; RESP 15; TEMP 98.8
[2025-04-11 03:30] VITALS: BP 122/81; PULSE 79; RESP 18; TEMP 97.9; O2SAT 98
--- NOTE | 2025-04-11 03:34 | NUR ---
PATIENT ARRIVED TO UNIT VIA STRETCHER, SELF TRANSFERRED,USES CANE, EDUCATED ON SAFETY PRECAUTIONS. CALL BORGES AT REACH.
[2025-04-11 04:30] VITALS: BP 129/83; PULSE 66; RESP 18
[2025-04-11 05:42] LABS: IMMATURE GRANULOCYTE ABSOLUTE 0.04 K/uL (0-1); NUCLEATED RED BLOOD CELLS 0.0 % (0.0-0.19); PLATELET COUNT (AUTO) 232 K/uL (130-400); RED BLOOD CELL COUNT(AUTO) 4.59 MIL/uL (4.50-6.20); RED CELL DISTRIBUTION WIDTH 13.3 % (11.0-15.5); WHITE BLOOD COUNT (AUTO) 10.8 K/uL (4.8-10.8)
[2025-04-11 06:03] LABS: CREATININE 0.8 mg/dL (0.5-1.3); GLOMERULAR FILTR. RATE CALC 96.0 mL/min (>90); GLUCOSE,RANDOM 101.0 mg/dL (70-105); SODIUM SERUM 141.0 mmol/L (136-145); UREA NITROGEN, BLOOD 15.0 mg/dL (7-18)
[2025-04-11 08:00] VITALS: BP 125/77; PULSE 64; RESP 18; TEMP 98; O2SAT 100
[2025-04-11] MEDS ORDERED: BACLOFEN 10 MG TABLET PO SCH (09:00)
[2025-04-11] MEDS ORDERED: PROC5TAB54 PO (10:46)
[2025-04-11 11:46] VITALS: BP 109/74; PULSE 69; RESP 16; TEMP 98.1
--- NOTE | 2025-04-11 14:36 | DS ---
Discharge Summary Hospital Course Summary: This is a 69-year-old male with past medical history of diabetes, hypertension, hyperlipidemia, CVA with right-sided weakness 2018, and coronary artery disease with cardiac stent x2 who presented to the ED for complaints of chest pain, shortness of breaths and hiccups . Son was at bedside and states patient recently had a cardiac stent x2 that was done at [place] by Dr. Ifrah Pardo and had to stay in the hospital for 2 days and came back here to [place] and patient started having persistent hiccups and mild chest pain 2/10 and mild shortness of breath.Patient denies cough,edema,orthopnea,fever,nausea,vomiting and abdominal pain.On examination patient is awake,alert and coherent,continue to have hiccups.V/S temperature 98.1, heart rate 75, blood pressure 110/66, saturation 99% on room air. Labs: WBC 12, hemoglobin 14, hematocrit 44, platelet count 251. Random glucose 155 the rest of the chemistries normal BNP 37 troponin 37 and 33. ECG result revealed sinus rhythm heart rate 85. Chest x-ray result revealed no acute cardiopulmonary process is evident. While in the ER patient was given baclofen 5 mg p.o. we will admit patient for further medical management. On the floor He was complaining of mild shortness of breath which looked secondary to the continuous hiccups that he has for last 1 week. He was also complaining of chest discomfort which was reproducible on palpation on the left chest probably secondary to musculoskeletal. He has a undergone coronary stenting on 03 of April. Remarkable lab is for magnesium 1.9, D-dimer 531. CT angio chest ruled out pulmonary embolism. EKG revealed sinus rhythm with unremarkable troponin trend. Cardiology consulted and recommended to continue aspirin 81 mg, Plavix 75 and atorvastatin 40, amlodipine 10 mg, tamsulosin 0.4, metoprolol succinate 25 mg. He was cleared for discharge with follow-up in 1-2 weeks with Cardiology. He were discharged with tablet Compazine 5 mg 3 times a day for 5 days to help with hiccups. He will also follow up with his PCP in 3 days. Hardness Inspector(s): Cardiology for chest discomfort Procedure(s): PATIENT: ROLAN AGUILAR MR#: [id number] : 1955 SEX: M AGE: 69 LOCATION: [facility] ORDER 08 STATUS: ADM IN REPORT#: [id number] SERVICE [id number] REASON: Elevated D-dimer ORDERING PHYSICIAN: MANDIE LLANOS MD PROCEDURE: CHES PE - CT CHEST PE PROTOCOL WWO CONT EXAM: CTA Chest with and without Intravenous Contrast for PE evaluation CLINICAL HISTORY: Elevated D-dimer TECHNIQUE: Axial CTA images of the chest with and without intravenous contrast using a pulmonary embolism protocol. Multiplanar reconstructed images were created and reviewed. CONTRAST: None. was administered without incident. COMPARISON: None provided. FINDINGS: PULMONARY ARTERIES: No evidence of central or segmental pulmonary embolism is seen. AORTA: There is no evidence for aneurysm or dissection of the thoracic aorta. LUNGS: The lungs appear clear. PLEURAL SPACES: No pleural effusion seen. No pneumothorax evident. HEART: Normal heart size. No significant pericardial effusion. LYMPH NODES: No lymphadenopathy is evident. BONES: Mild degenerative change of the spine. UPPER ABDOMEN: Images of the upper abdomen are unremarkable. IMPRESSION: 1. No acute intrathoracic findings. 2. No evidence of pulmonary embolism. /[place] DICTATED BY: PATRICIA SAGASTUME MD DATE: 04/10/251035 ELECTRONICALLY SIGNED BY: PATRICIA SAGASTUME MD DATE: 04/10/25 103 Assessment/Plan: ASSESSMENT: Chest pain rule out ACS POA Persistent hiccups POA Recent cardiac stent x2 POA Coronary artery disease POA Hypertension POA Hyperlipidemia POA Diabetes POA CVA with right-sided weakness POA Discharge Instructions: -Please continue your home medications including aspirin, Plavix and atorvastatin. -You are prescribed prochlorperazine 5 mg 3 times a day for 5 days. Please take it as instructed. -Follow up to cardiology in 2 weeks. -Follow up to your PCP in 3 days. Home Medications: Active Scripts Prochlorperazine Maleate (Compazine) 5 Mg Tab, 5 MG PO TID for 5 Days, #15 TAB Prov:MANDIE LLANOS MD 04/11/25 Reported Medications Gabapentin (Gabapentin) 100 Mg Capsule, 1 CAP PO AD for 30 Days, #90 CAP 0 Refills 04/10/25 Tamsulosin HCl (Flomax) 0.4 Mg Cap.er.24h, 1 CAP PO DAILY for 30 Days, #30 CAP 0 Refills 04/10/25 Metoprolol Succinate (Metoprolol Succinate) 25 Mg Tab.er.24h, 1 TAB PO DAILY for 30 Days, #30 TAB 0 Refills 04/10/25 Metformin HCl (Metformin HCl) 1,000 Mg Tablet, 1 TAB PO BID for 30 Days, #60 TAB 0 Refills 04/10/25 Cyclobenzaprine HCl (Cyclobenzaprine HCl) 5 Mg Tablet, 1 TAB PO HSPRN PRN for muscle spasms for 30 Days, #30 TAB 0 Refills 04/10/25 Clopidogrel Bisulfate (Clopidogrel) 75 Mg Tablet, 1 TAB PO DAILY for 30 Days, #30 TAB 0 Refills 04/10/25 Atorvastatin Calcium (LIPITOR) 40 Mg Tablet, 1 TAB PO DAILY for 30 Days, #30 TAB 0 Refills 04/10/25 Aspirin (Aspirin) 81 Mg Tab.chew, 1 TAB PO DAILY for 30 Days, #30 TAB 0 Refills 04/10/25 Amlodipine Besylate (Amlodipine Besylate) 10 Mg Tablet, 1 TAB PO DAILY for 30 Days, #30 TAB 0 Refills 04/10/25 Discontinued Reported Medications Gabapentin (Gabapentin) 100 Mg Capsule, 1 CAP PO TID for 30 Days, #90 CAP 0 Refills 04/10/25 Tamsulosin HCl (Flomax) 0.4 Mg Cap.er.24h, 1 CAP PO DAILY for 30 Days, #30 CAP 0 Refills 11/27/24 Metformin HCl (Metformin HCl) 1,000 Mg Tablet, 1 TAB PO BID for 30 Days, #60 TAB 0 Refills 11/27/24 Gabapentin (Gabapentin) 100 Mg Capsule, 1 CAP PO BID PRN for PAIN MDD 200MG for 30 Days, #90 CAP 0 Refills 11/27/24 Amlodipine Besylate (Amlodipine Besylate) 5 Mg Tablet, 1 TAB PO DAILY for 30 Days, #30 TAB 0 Refills 11/27/24 Discontinued Scripts Atorvastatin Calcium (LIPITOR) 40 Mg Tablet, 40 MG PO DAILY, #30 TAB Prov:JIGNA PATEL MD 02/17/24 New Medications: Prochlorperazine Maleate (Compazine) 5 Mg Tab 5 MG PO TID for 5 Days, #15 TAB Continued Medications: Amlodipine Besylate (Amlodipine Besylate) 10 Mg Tablet 1 TAB PO DAILY for 30 Days, #30 TAB 0 Refills Aspirin (Aspirin) 81 Mg Tab.chew 1 TAB PO DAILY for 30 Days, #30 TAB 0 Refills Atorvastatin Calcium (Lipitor) 40 Mg Tablet 1 TAB PO DAILY for 30 Days, #30 TAB 0 Refills Clopidogrel Bisulfate (Clopidogrel) 75 Mg Tablet 1 TAB PO DAILY for 30 Days, #30 TAB 0 Refills Cyclobenzaprine HCl (Cyclobenzaprine HCl) 5 Mg Tablet 1 TAB PO HSPRN PRN for muscle spasms for 30 Days, #30 TAB 0 Refills Gabapentin (Gabapentin) 100 Mg Capsule 1 CAP PO AD for 30 Days, #90 CAP 0 Refills Metformin HCl (Metformin HCl) 1,000 Mg Tablet 1 TAB PO BID for 30 Days, #60 TAB 0 Refills Metoprolol Succinate (Metoprolol Succinate) 25 Mg Tab.er.24h 1 TAB PO DAILY for 30 Days, #30 TAB 0 Refills Tamsulosin HCl (Flomax) 0.4 Mg Cap.er.24h 1 CAP PO DAILY for 30 Days, #30 CAP 0 Refills Discontinued Medications: Amlodipine Besylate (Amlodipine Besylate) 5 Mg Tablet 1 TAB PO DAILY for 30 Days, #30 TAB 0 Refills Atorvastatin Calcium (Lipitor) 40 Mg Tablet 40 MG PO DAILY, #30 TAB Gabapentin (Gabapentin) 100 Mg Capsule 1 CAP PO BID PRN for PAIN MDD 200MG for 30 Days, #90 CAP 0 Refills Gabapentin (Gabapentin) 100 Mg Capsule 1 CAP PO TID for 30 Days, #90 CAP 0 Refills Metformin HCl (Metformin HCl) 1,000 Mg Tablet 1 TAB PO BID for 30 Days, #60 TAB 0 Refills Tamsulosin HCl (Flomax) 0.4 Mg Cap.er.24h 1 CAP PO DAILY for 30 Days, #30 CAP 0 Refills Time spent arranging discharge: 1-30 minutes ATTESTATION BY PHYSICIAN I have seen and examined the patient. I reviewed the documentation, medical decision making, and treatment plan as noted by the resident provider above. I agree with the findings and plan of care. Carmelo Alvarado MD, SUNIL MD Apr 11, 2025 14:36
--- NOTE | 2025-04-11 16:00 | NUR ---
PT sitting in bed w/ eyes open A&Ox4 able to make needs known, denies pain or discomfort, Family @ bedside. Discharge instructions given to PT and family verbally and written. PT and family verbally acknowledged understanding. I.V. removed intact w/o complications. PT escorted to POV via WC by RN LABOR AND DELIVERY w/o complications.
== END 2025-04-11 16:00 | disposition home or self-care (01) ==
LOC: EDH 23:27 → UNDOADMOB 04-10 04:44 → EDHIP 04-10 04:44 → INTOOBSV 04-10 04:44 → EDHIP 04-11 02:26 → 3DH 04-11 03:20 → EDHIP 04-11 03:20 → 3DH 04-11 11:03 → EDHIP 04-11 11:03
PROVIDERS: ADMIT Internal Medicine; ATTEND Internal Medicine
DX: R07.89 Other chest pain (principal); R06.6 Hiccough; R11.2 Nausea with vomiting, unspecified; I25.10 Atherosclerotic heart disease of native coronary artery without angina pectoris; E11.9 Type 2 diabetes mellitus without complications; E78.5 Hyperlipidemia, unspecified; I10 Essential (primary) hypertension; Z79.02 Long term (current) use of antithrombotics/antiplatelets; Z79.82 Long term (current) use of aspirin; Z79.84 Long term (current) use of oral hypoglycemic drugs; Z79.899 Other long term (current) drug therapy; Z95.5 Presence of coronary angioplasty implant and graft; Z98.890 Other specified postprocedural states
CPT/HCPCS: 99285; 82550; 83735 ×3; 84484 ×4; 80048 ×2; 83880; 85025 ×3; 85610; 85730; 71045; 93005; 80053; 85378; 82948 ×4; 81001; 36415 ×3; 71270; Q9967; J1815; G0378 ×5